=== PATIENT | female | born 1995 | race Hispanic/Latino ===

== ENCOUNTER 2023-01-23 13:28 | Day surgery (SDC) | payer MEDICAID ==
[2023-01-23 14:06] VITALS: BMI 41.6
[2023-01-23] MEDS ORDERED: hydrALAZINE 20 MG/ML VIAL SLOW IVP PRN (14:55)
[2023-01-23] MEDS ORDERED: Acetaminophen 500 MG TAB PO SCH (15:00)
[2023-01-23 15:33] LABS: Bilirubin Neg (Negative); Blood, Urine Negative (Negative); Clarity Clear (Clear); Glucose, Urine (Dipstick) Normal (Negative); Ketone, Urine Negative (Negative); Leukocyte 100 (Negative); Nitrite Negative (Negative); Protein, Urine (Dipstick) 15 mg/dl (Neg-Trace)
[2023-01-23 16:02] LABS: CAUTI Indications for Culture Pelvic or flank pain; RBC/HPF None Seen HPF (0-3); Squamous Epithelial 0-3 HPF (0-3); WBC/HPF 0-3 HPF (0-3)
[2023-01-23 16:03] LABS: Bacteria/HPF 1+ HPF (None Seen); Urine Culture Reflex No No
[2023-01-23] MEDS ORDERED: cefTRIAXone (ROCEPHIN) 1 GM VIAL IM SCH (17:00)
== END 2023-01-23 17:03 | disposition home or self-care (01) ==
LOC: CSHLD/OP 13:28
PROVIDERS: ATTEND Family Medicine
DX: O26.893 Other specified pregnancy related conditions, third trimester (principal); O47.03 False labor before 37 completed weeks of gestation, third trimester; M54.50 Low back pain, unspecified; R10.2 Pelvic and perineal pain; Z3A.36 36 weeks gestation of pregnancy
CPT/HCPCS: 81001; 87086; J0696

== ENCOUNTER 2023-01-30 21:56 | Day surgery (SDC) | payer MEDICAID ==
[2023-01-30 22:23] VITALS: BMI 42.5
[2023-01-30] MEDS ORDERED: Lactated Ringer's 1,000 ML IV SCH (22:45)
[2023-01-30] MEDS ORDERED: hydrALAZINE 20 MG/ML VIAL SLOW IVP PRN (22:45)
[2023-01-30 23:19] LABS: Bilirubin Neg (Negative); Blood, Urine Negative (Negative); Clarity Clear (Clear); Glucose, Urine (Dipstick) Normal (Negative); Ketone, Urine Negative (Negative); Leukocyte Negative (Negative); Nitrite Negative (Negative); Protein, Urine (Dipstick) 30 mg/dl (Neg-Trace)
[2023-01-30 23:47] LABS: Bacteria/HPF Rare-Few HPF (None Seen); CAUTI Indications for Culture Pelvic or flank pain; RBC/HPF 0-3 HPF (0-3); WBC/HPF 0-3 HPF (0-3)
[2023-01-30 23:48] LABS: Mucous/LPF 2+ LPF (<2+)
[2023-01-30 23:49] LABS: Urine Culture Reflex No No
== END 2023-01-31 01:22 | disposition home or self-care (01) ==
LOC: CSHLD/OP 21:56
PROVIDERS: ATTEND Family Medicine
DX: O36.8130 Decreased fetal movements, third trimester, not applicable or unspecified (principal); O99.891 Other specified diseases and conditions complicating pregnancy; N89.8 Other specified noninflammatory disorders of vagina; Z3A.37 37 weeks gestation of pregnancy
CPT/HCPCS: 76819; 81001; 87480; 87510; 87660; 96360; 99285

== ENCOUNTER 2023-02-11 06:00 | Inpatient (IN) | payer MEDICAID, OTHER ==
[2023-02-11 10:48] VITALS: BMI 41.6
[2023-02-11] MEDS: Lactated Ringer's 1,000 ML IV SCH ×2 (10:55→15:09)
[2023-02-11] MEDS ORDERED: Lidocaine 1% (PF) 30 ML VIAL SC PRN (11:16)
[2023-02-11] MEDS ORDERED: Ondansetron PF 4 MG/2 ML Vial IVP PRN ×3 (11:16→21:09)
[2023-02-11] MEDS ORDERED: Acetaminophen 500 MG TAB PO PRN (11:16)
[2023-02-11] MEDS ORDERED: Misoprostol 200 MCG TAB PR PRN (11:16)
[2023-02-11] MEDS ORDERED: hydrALAZINE 20 MG/ML VIAL SLOW IVP PRN ×2 (11:16→21:09)
[2023-02-11] MEDS ORDERED: HYDROcodone/Acetaminophen 5/325 mg Tablet PO PRN (11:16)
[2023-02-11] MEDS ORDERED: Methylergonovine 0.2 MG/ML VIAL IM PRN (11:16)
[2023-02-11] MEDS ORDERED: Oxytocin 30 units/NS 500 ML 500 ML IV SCH ×4 (11:16→21:09)
[2023-02-11] MEDS ORDERED: Diphenoxylate HCl/Atropine Tablet PO PRN (11:16)
[2023-02-11] MEDS ORDERED: Promethazine HCl 25 MG/ML VIAL IM PRN ×3 (11:16→21:09)
[2023-02-11] MEDS ORDERED: fentaNYL 50 mcg/mL 1 mL Vial SLOW IVP PRN (11:16)
[2023-02-11] MEDS ORDERED: Ibuprofen 800 MG TAB PO PRN (11:16)
[2023-02-11] MEDS ORDERED: Carboprost 250 MCG/ML AMP IM PRN (11:16)
[2023-02-11] MEDS ORDERED: Tranexamic Acid 1,000 MG/10 ML VIAL IVP PRN (11:16)
[2023-02-11 11:28] LABS: Hematocrit 26.3 % (34.9-44.5); Hemoglobin 7.8 g/dL (12.0-15.5); Mean Corpuscular HGB CONC 29.7 g/dL (32.0-36.0); Mean Corpuscular Hemoglobin 21.5 pg (27.0-33.0); Mean Corpuscular Volume 72.5 fl (81.6-98.3); Mean Platelet Volume 11.7 fl (7.4-10.4); Platelet Count 209 10x3/uL (150-450); RBC Distribution Width 17.2 % (11.5-14.5); Red Blood Cell (RBC) Count 3.63 10x6/uL (3.90-5.03); White Blood Cell (WBC) Count 7.9 10x3/uL (3.5-10.5)
[2023-02-11 12:05] LABS: Syphilis Antibody Nonreactive (Nonreactive); Syphilis Antibody Index 0.03 S/CO (<1.00 Non-Reactive)
[2023-02-11 12:06] LABS: HBSAg Index 0.22 S/CO (0-0.99); Hep B Surf Ag - L&D Non-Reactive S/CO (NonReactive)
[2023-02-11] MEDS ORDERED: fentaNYL/Ropivacaine Epidural 100 ML ONE (14:04)
[2023-02-11] MEDS ORDERED: Sodium Bicarbonate 2.5 MEQ/5 ML VIAL ONE (14:18)
[2023-02-11] MEDS ORDERED: ePHEDrine Sulfate 50 MG/10 ML VIAL SLOW IVP PRN (15:37)
[2023-02-11] MEDS ORDERED: Acetaminophen 325 MG TAB PO PRN (15:37)
[2023-02-11] MEDS ORDERED: Moisturizing Cream (Eucerin) 113 GM JAR TOP PRN (15:37)
[2023-02-11] MEDS ORDERED: Lactated Ringer's 500 ML IV PRN (15:37)
[2023-02-11] MEDS ORDERED: Naloxone HCl 0.4 mg/ml Vial IVP PRN ×2 (15:37)
[2023-02-11] MEDS ORDERED: diphenhydrAMINE 50 MG/ML VIAL IVP PRN (15:37)
[2023-02-11] MEDS ORDERED: fentaNYL 2 mcg/Ropivacaine 0.2% Epidural 100 ML CADD EPIDURAL SCH (15:45)
[2023-02-11] MEDS ORDERED: Communication Order-Pharmacy FS SCH (15:45)
[2023-02-11] MEDS ORDERED: Bupivacaine 0.25% HCL 30 ML VIAL ONE (20:00)
[2023-02-11] MEDS ORDERED: Benzocaine-Menthol 82.5 ML CAN TOP PRN (21:09)
[2023-02-11] MEDS ORDERED: Boostrix 0.5 ML (Tdap) VIAL (>/=7 yrs of age) IM ONE (21:09)
[2023-02-11] MEDS ORDERED: diphenhydrAMINE 25 MG CAP PO PRN (21:09)
[2023-02-11] MEDS ORDERED: Milk Of Magnesia 30 ML UDCUP PO PRN (21:09)
[2023-02-11] MEDS ORDERED: Bisacodyl 10 MG SUPP PR PRN (21:09)
[2023-02-11] MEDS ORDERED: Ibuprofen 800 MG TAB PO SCH (22:00)
[2023-02-12] MEDS: HYDROcodone/Acetaminophen 5/325 mg Tablet PO PRN ×2 (01:49→18:21)
[2023-02-12] MEDS: Ibuprofen 800 MG TAB PO SCH ×3 (06:24→21:46)
[2023-02-12] MEDS: Docusate 100 MG CAP PO SCH ×3 (07:34→21:46)
[2023-02-12] MEDS: Ferrous Sulfate 325 MG TAB PO SCH ×2 (08:46→18:20)
[2023-02-12] MEDS: Prenatal Vitamin 1 TAB PO SCH (08:46)
[2023-02-12] MEDS ORDERED: Witch Hazel-Glycerin 1 EACH JAR TOP PRN (23:57)
[2023-02-13] MEDS ORDERED: Preparation H Ointment 28 GM TUBE TOP PRN (05:13)
[2023-02-13] MEDS: Ibuprofen 800 MG TAB PO SCH ×2 (05:25→13:36)
[2023-02-13 07:39] VITALS: BP 121/68; TEMP 98.5
[2023-02-13] MEDS: Prenatal Vitamin 1 TAB PO SCH (09:01)
[2023-02-13] MEDS: Ferrous Sulfate 325 MG TAB PO SCH (09:01)
[2023-02-13] MEDS: Docusate 100 MG CAP PO SCH (09:01)
[2023-02-13] MEDS: HYDROcodone/Acetaminophen 5/325 mg Tablet PO PRN (13:35)
== END 2023-02-13 14:35 | disposition home or self-care (01) | DRG 807 ==
LOC: CSHLD 09:36 → CSHPP 21:23
PROVIDERS: ADMIT Family Medicine; ATTEND Family Medicine
PROC: 10E0XZZ Delivery of Products of Conception, External Approach (ICD-10-PCS; principal; 2023-02-11)
PROC: 10907ZC Drainage of Amniotic Fluid, Therapeutic from Products of Conception, Via Natural or Artificial Opening (ICD-10-PCS; 2023-02-11)
PROC: 3E033VJ Introduction of Other Hormone into Peripheral Vein, Percutaneous Approach (ICD-10-PCS; 2023-02-11)
DX: O80 Encounter for full-term uncomplicated delivery (principal); Z37.0 Single live birth; Z3A.39 39 weeks gestation of pregnancy
CPT/HCPCS: 85027; 86780; 86850; 86900; 86901; 87340; J2590; J7120; S0020